=== PATIENT | female | born 1985 | race Caucasian/White ===

== ENCOUNTER 2023-06-18 11:50 | Outpatient (CLI) | payer OTHER, SELFPAY | END 2023-06-18 11:51 | disposition home or self-care (01) | PROVIDERS: PCP Physician Assistant Medical; Visit Provider Physician Assistant Medical | DX: R10.33 Periumbilical pain (principal); Z13.228 Encounter for screening for other metabolic disorders; Z13.29 Encounter for screening for other suspected endocrine disorder | CPT/HCPCS: 80053; 83690; 84443; 86364 ==

== ENCOUNTER 2023-07-03 10:43 | Outpatient (CLI) | payer OTHER, SELFPAY ==
--- NOTE | 2023-07-03 11:00 | CT_ITS ---
Patient: OSKAR BARNES Facility:?[facility] Patient ID:?[id number] Site Patient ID:?[id number]. Site :?[id number] Study:?CT-Abdomen/Pelvis W/ 68CC ISOVUE 370-07/03/2023 11:42:40 AM Ordering Physician:GABRIELLE Final Report: Indication: ABDOMINAL PAIN; PAIN IN LOWER ABD AROUND BLADDER AREA Technique: CT Abdomen/Pelvis W/ 68CC ISOVUE 370 Please note that all CT scans at this facility use dose modulation, iterative reconstruction, and/or weight-based dosing when appropriate to reduce radiation dose to as low as reasonably achievable. Comparison: None Findings: Lung bases are clear. Normal liver and gallbladder. Pancreas is unremarkable. Normal spleen. Adrenal glands and kidneys are within normal limits. The bladder is nondistended. Normal ureters. No hiatal hernia. Stomach is normal. No bowel obstruction. Normal appendix. No evidence of inflammatory bowel disease. Trace physiologic free fluid. Normal ovarian follicles are present. The uterus is heterogeneous in the fundal region. Osseous structures are within normal limits. Bone islands within the proximal femurs. No adenopathy. Impression: The bladder is nondistended. No urinary tract stones. Heterogeneity of the uterine fundus, indeterminate. Pelvic ultrasound recommended for further evaluation. No bowel obstruction. Normal appendix. No abdominal wall hernia. Please note that all CT scans at this facility use dose modulation, iterative reconstruction, and/or weight-based dosing when appropriate to reduce radiation dose to as low as reasonably achievable. Dictated by Noah Aviles MD @ 07/03/2023 11:53:44 AM Signed by:?Noah Aviles MD @07/03/2023 11:53:44 AM (Electronic Signature)
== END 2023-07-03 10:44 | disposition home or self-care (01) ==
PROVIDERS: PCP Physician Assistant Medical; Visit Provider Physician Assistant Medical
DX: R10.9 Unspecified abdominal pain (principal)
CPT/HCPCS: 74177; Q9967